=== PATIENT | male | born 1960 | race Caucasian/White ===

== ENCOUNTER 2023-01-29 07:37 | Day surgery (SDC) | payer BC ==
[2023-01-25 10:56] LABS: Hematocrit 43.3 % (39.6-49.0); Lymphocytes % 13.6 % (15.3-44.8); MCV 94.7 fL (80-100); MPV 7.6 fL (7.6-11.3); RBC Red Blood Cell Count 4.57 M/uL (4.33-5.43)
[2023-01-25 11:39] LABS: Protime INR 0.68
[2023-01-29] MEDS ORDERED: Ringers Lactate 1,000 ML IV ONE ×2 (08:01→10:17)
[2023-01-29] MEDS ORDERED: propofoL 200 MG/20 ML VIAL IV ONE (09:17)
[2023-01-29] MEDS ORDERED: FENTANYL CITR 100 MCG/2 ML ONE (09:19)
[2023-01-29] MEDS ORDERED: MIDAZOLAM HCL 2 MG/2 ML INJ ONE (09:19)
[2023-01-29] MEDS ORDERED: LIDOCAINE 2% MPF 5 ML VIAL ONE (09:20)
[2023-01-29] MEDS ORDERED: ONDANSETRON 4 MG/2 ML VIAL ONE (09:20)
[2023-01-29] MEDS: CEFAZOLIN SODIUM 1 GM/VIAL ONE ×2 (09:49→10:15)
[2023-01-29] MEDS: BUPIVACAINE 0.25% PF 10 ML VIAL ONE ×2 (10:16→10:24)
--- NOTE | 2023-01-29 10:35 | P.BOP ---
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
[2023-01-29] MEDS ORDERED: KETOROLAC 30 MG/ML INJ ONE (10:37)
--- NOTE | 2023-01-29 10:37 | P.OP ---
Preoperative diagnosis: right carpal tunnel syndrome Postoperative diagnosis: same Primary procedure: right open carpal tunnel release Anesthesia: general Estimated blood loss: 3 cc Specimen: none Findings: see dictation Operative Technique: Reason for Surgery: The patient had physical exam findings as well as EMG findings consistent with carpal tunnel syndrome. I discussed with the patient at length risks and benefits associated with the procedure. They expressed understanding and elected proceed with operative treatment. Description of Procedure: After informed consent was obtained the patient was identified in the preoperative holding area. The right upper extremity was marked. The patient then brought back to the operating room transferred the operative table in supine fashion and placed under anesthesia. The right upper extremity was exsanguinated and the tourniquet was inflated to 250 mmHg. Approximately a 3 cm longitudinal incision was made just ulnar to the thenar crease. Dissection was then taken down to the palmar fascia which was identified. A Henderson elevator was then placed just deep to the palmar fascia to protect the median nerve at all times. A 15 blade was then used to release the palmar fascia and transverse carpal ligament leaving the Henderson elevator to protect the nerve at all times. Any remaining fascial bands were then released using a blunt tip Metzenbaum scissor. The tips were aimed superficially to protect the median nerve at all times. The wound was then irrigated thoroughly with normal saline. The skin was approximated using a 5-0 Prolene. Sterile dressings were applied and patient was awakened and transferred to PACU in stable condition. Postoperative plan: The patient will follow-up in 1 to 2 weeks for wound check and suture removal. They may begin to work on range of motion exercises at this time. Complications: None
[2023-01-29 11:29] VITALS: BP 137/85; TEMP 96.8; O2SAT 99
== END 2023-01-29 12:00 | disposition home or self-care (01) ==
LOC: OR 07:37
PROVIDERS: ATTEND Orthopaedic Surgery Sports Medicine
PROC: 01N50ZZ Release Median Nerve, Open Approach (ICD-10-PCS; principal; 2023-01-29 09:15)
DX: G56.01 Carpal tunnel syndrome, right upper limb (principal); I10 Essential (primary) hypertension; E78.00 Pure hypercholesterolemia, unspecified; M10.9 Gout, unspecified; M35.3 Polymyalgia rheumatica; F32.A Depression, unspecified; E66.9 Obesity, unspecified; Z68.33 Body mass index [BMI] 33.0-33.9, adult; Z79.899 Other long term (current) drug therapy
CPT/HCPCS: 85025; 80048; 36415; 85610; 85730; 64721; J2704; J2001; J2250; J3010; J2405; J7120 ×2; J0690